=== PATIENT | female | born 1980 | race Caucasian/White ===

== ENCOUNTER 2016-03-26 17:22 | Emergency (ER) | payer OTHER ==
[~2016-03-26] VITALS: Ht 154.9 cm; Wt 59.1 kg
[2016-03-26 17:34] VITALS: BP 108/94
[2016-03-26] MEDS ORDERED: MOTRIN600 MG PO (18:57)
== END 2016-03-26 19:41 | disposition home or self-care (01) ==
LOC: EXP 17:22 → EME 17:22 → EXP 19:41
PROC: 2W3QX1Z Immobilization of Right Lower Leg using Splint (ICD-10-PCS; principal; 2016-03-26)
DX: S93.401A Sprain of unspecified ligament of right ankle, initial encounter (principal); W11.XXXA Fall on and from ladder, initial encounter; Y92.008 Other place in unspecified non-institutional (private) residence as the place of occurrence of the external cause; F17.200 Nicotine dependence, unspecified, uncomplicated
CPT/HCPCS: 73610; 99281; 99284